=== PATIENT | female | born 1960 | race Caucasian/White ===

== ENCOUNTER → 2020-10-09 08:51 | Outpatient (CLI) | payer OTHER, SELFPAY ==
--- NOTE | ~2020-10-09 | XR_ITS ---
XR shoulder LT min 2V 10/09/2020 09:14 INDICATION: Left shoulder pain PROCEDURE: 4 views left shoulder COMPARISON: No prior studies for comparison. FINDINGS: Fracture, dislocation or subluxation is not identified. The soft tissues appear within norm al limits. No foreign bodies are identified. IMPRESSION: 1: NO ACUTE BONE OR JOINT ABNORMALITY IDENTIFIED. Reviewed, dictated and finalized at location A. R DEALER
== END ==
PROVIDERS: Visit Provider Physician Assistant
DX: M79.602 Pain in left arm (principal)
CPT/HCPCS: 73030

== ENCOUNTER → 2021-04-23 17:49 | Outpatient (CLI) | payer OTHER, SELFPAY ==
--- NOTE | ~2021-04-23 | DEXA_ITS ---
Bone Density Report Name: Mony Harrington Age: 60 Sex: Female Ethnicity: White Date of : 1960 Indication: postmenopausal; screening for osteoporosis; hysterectomy; Referring Provider: Connor, Annalisa Vasquez Study: Bone densitometry was performed. Exam Date: April 23, 2021 Accession number: [id number] Bone Density: Region BMD T-score Z-score Classification AP Spine (L1-L4) 1.071 0.2 1.8 Normal Femoral Neck (Left) 0.796 -0.5 0.9 Normal Total Hip (Left) 0.943 0.0 1.1 Normal Femoral Neck (Right) 0.784 -0.6 0.8 Normal Total Hip (Right) 0.972 0.2 1.4 Normal Total Hip Mean 0.958 0.1 1.3 Normal World Health Organization criteria for BMD impression classify patients as: Normal (T-score at or above -1.0), Osteopenia (T-score between -1.0 and -2.5), or Osteoporosis (T-score at or below -2.5). 10-year Fracture Risk: FRAX not reported because: All T-scores for Spine Total, Hip Total, Femoral Neck at or above -1.0 Previous Exams: Region Exam Age BMD T-score BMD Change BMD Change Date g/cm2 vs Baseline vs Previous AP Spine(L1-L4) 04/23/2021 60 1.071 0.2 -0.095* -0.036* 02/03/2017 56 1.107 0.5 -0.059* -0.009 08/24/2013 53 1.116 0.6 -0.050* -0.050* 09/29/2008 48 1.166 1.1 Total Hip(Left) 04/23/2021 60 0.943 0.0 -0.094* 0.001 02/03/2017 56 0.943 0.0 -0.095* -0.043* 08/24/2013 53 0.986 0.4 -0.052* -0.052* 09/29/2008 48 1.037 0.8 Total Hip(Right) 04/23/2021 60 0.972 0.2 -0.043* -0.037* 02/03/2017 56 1.009 0.5 -0.006 0.019 08/24/2013 53 0.990 0.4 -0.025 -0.025 09/29/2008 48 1.015 0.6 *Denotes significance at 95% confidence level, LSC for AP Spine = 0.022 g/cm2, LSC for Total Hip = 0.027 g/cm2 Clinical Information Provided by Patient: Has used the following medications: Vitamin D, Calcium Has the following medical conditions: Hysterectomy Patient maximum height was 68 Menopause Age: 27 Drinks caffeinated beverages Onset of menses at age 9 Number of children 3 Impression: The patient has normal bone mass. The BMD for the AP Spine(L1-L4) decreased, changing by -0.036 since the last DXA exam. The BMD for the Total Hip(Right) decreased, changing by -0.037 since the last DXA exam. Discussion: BONE DENSITY IS ABOVE THE MINIMUM DESIRABLE L
--- NOTE | ~2021-04-23 | MM_ITS ---
EXAMINATION: MM screening [facility] BI w chris HISTORY: Screening mammogram TECHNIQUE: Craniocaudal and mediolateral oblique 3-D tomosynthesis images were obtained and synthetic 2-D images were generated. CAD analysis was submitted and interpreted. COMPARISON: 09/23/2019, 03/14/2018 BREAST PARENCHYMAL COMPOSITION: The breasts are heterogeneously dense, which may obscure small masses . FINDINGS: There is no evidence of suspicious mass, calcification, or architectural distortion to sugg est malignancy in either breast. There has been no suspicious interval change. IMPRESSION: 1. No mammographic evidence of malignancy. 2. Recommend routine screening mammography in one year. BI-RADS Category 1: Negative Reviewed, dictated and finalized at location A.
== END ==
PROVIDERS: PCP Family Medicine; Visit Provider Nurse Practitioner Obstetrics & Gynecology
DX: Z12.31 Encounter for screening mammogram for malignant neoplasm of breast (principal); Z78.0 Asymptomatic menopausal state
CPT/HCPCS: 77063; 77067; 77080

== ENCOUNTER → 2022-04-20 10:46 | Outpatient (CLI) | payer OTHER, SELFPAY ==
--- NOTE | ~2022-04-20 | CT_ITS ---
EXAMINATION: CT UE RT wo con DATE: 04/20/2022 11:00 INDICATION: 04/21/2022 TECHNIQUE: High resolution computed tomography (CT) of the right forearm was performed without intrav enous contrast. Additional sagittal and coronal reconstructions were performed. Automated exposure co ntrol and iterative reconstruction technique were employed. The dose-length product was 138.33 mGy-cm . COMPARISON: None FINDINGS: There is a large lenticular homogeneous fat attenuation lipoma which extends along what appears to be a fascial plane deep to the musculature of the extensor compartment at the radial side of the proxim al to mid forearm. The mass measures 9.2 x 5.8 x 2.8 cm in maximal orthogonal dimensions. No evident solid nodular soft tissue component. The mass exerts some mass effect upon the radial artery which ex tends along the volar/ulnar margin of the mass. The surrounding musculature is unremarkable. Bone ali gnment is normal. No fracture, cortical erosions or periosteal reaction. Joint spaces are relatively preserved. No elbow joint effusion. IMPRESSION: 1. 9.2 x 5.8 x 2.8 cm lipoma extending along the fascial plane deep to the extensor compartment at th e radial aspect of the proximal to mid forearm. Reviewed, dictated and finalized at location A. IMPRESSION: 1. 9.2 x 5.8 x 2.8 cm lipoma extending along the fascial plane deep to the exte nsor compartment at the radial aspect of the proximal to mid forearm.
== END ==
PROVIDERS: PCP Family Medicine; Visit Provider Physician Assistant Medical
DX: D17.21 Benign lipomatous neoplasm of skin and subcutaneous tissue of right arm (principal)
CPT/HCPCS: 73200

== ENCOUNTER → 2022-05-02 10:49 | Outpatient (CLI) | payer OTHER, SELFPAY ==
--- NOTE | ~2022-05-02 | MR_ITS ---
EXAMINATION: MR foot RT wo/w con DATE: 05/02/2022 11:37 INDICATION: Soft tissue mass at the right foot TECHNIQUE: Magnetic resonance imaging (MRI) of the right fore/mid foot was performed without and with 17 mL Multihance intravenous contrast. Sequences included sagittal T1-weighted FSE, sagittal fluid s ensitive FSE STIR, coronal PD-weighted FS FSE, coronal T1-weighted FSE, axial T2-weighted FS FSE, and axial T1-weighted FSE. COMPARISON: None FINDINGS: There is a lobular macroscopic fat attenuation lipoma at the plantar aspect of the forefoot. The dist al portion of the lipoma extends between the fourth and fifth metatarsophalangeal joints and with the larger region of the mass extending proximally within the fat pad plantar to the diaphysis of the th ird and fourth metatarsals. The mass measures 5.1 cm and up to 2.3 x 1.3 cm in maximal orthogonal dim ensions. At the level of the metatarsophalangeal joints the mass measures 5 mm the medial to lateral width. Bone alignment is normal. Mild edema and enhancement at both moieties of a bipartite first metatarsal tibial sesamoid suggestive of sesamoiditis. Marrow signal is otherwise normal with no fracture or pa thologic marrow replacing process. Joint spaces are normal. Physiologic amount fluid in the joint [place]. Intrinsic musculature of the foot appears normal. The visualized portions of the flexor and exte nsor tendons are normal. Lisfranc ligament complex as well as the collateral ligament complex at the metatarsophalangeal and interphalangeal joints are normal. No abnormally enhancing lesions identified . IMPRESSION: 1. 5.1 x 2.3 x 1.3 cm lipoma located between the fourth and fifth metatarsophalangeal joints and plan tar to the central aspect of the forefoot. 2. Mild edema and enhancement within a bipartite tibial sesamoid suggestive of sesamoiditis. Reviewed, dictated and finalized at location B. IMPRESSION: 1. 5.1 x 2.3 x 1.3 cm lipoma located between the fourth and fifth metatarsophal angeal joints and plantar to the central aspect of the forefoot. 2. Mild edema and enhancement within a bipartite tibial sesamoid suggestive of sesamoiditis.
[2022-05-02 11:09] LABS: Estimated Glomerular Filt Rate > 60
== END ==
PROVIDERS: PCP Family Medicine; Visit Provider Podiatrist Foot & Ankle Surgery
DX: M67.479 Ganglion, unspecified ankle and foot (principal); D17.79 Benign lipomatous neoplasm of other sites; M79.89 Other specified soft tissue disorders
CPT/HCPCS: 73720; A9577

== ENCOUNTER 2022-06-01 00:36 | Day surgery (SDC) | payer OTHER, SELFPAY ==
[2022-05-24 15:56] VITALS: BMI 30.4
--- NOTE | 2022-05-24 16:19 | PC.NURSE ---
Report to the Outpatient Waiting Room, entrance under the green pavilion located off [facility], at 1000 on 06-01-2022. OR Time: 1200. - You and your visitor will be asked a series of questions to screen for COVID 19 for your protection. - Only one visitor is allowed at this time. - The patient visitor is requested to leave or wait in car when not with patient. - A mask is required within the hospital. Patients may have clear liquids (water, carbonated beverages, clear teas, apple juice) until 3 hours prior to surgery with a maximum of 20 ounces. - No food from midnight until time of surgery - Infants may have breast milk until 4 hours before surgery, formula 6 hours prior to surgery. - Children will be allowed to drink immediately following surgery. If applicable, please bring a bottle or sippy cup to assist with drinking. Juice, water, soda, and popsicles are readily available. For infants on formula, please bring formula the day of surgery. Pacifiers are allowed. Take the following medications with a SIP of water the morning of surgery: None Medications to discontinue per physician: vitamins and supplements (Okay to continue aspirin per Juan Luis) Date to take last dose: 05-29-2022 Please no make-up, nail french, hairspray, perfume, deodorant, or body powder the day of surgery. No jewelry (including any body piercings) or valuables the day of surgery, leave them at home. Please take a shower or bath the night before, or the morning of, surgery with an antibacterial soap. Wear comfortable, loose fitting clothing. Children are encouraged to wear pajamas. - Jewelry must be removed prior to entering the operating room. Rings and piercings that are not removed may be cut off. - The hospital will not accept responsibility for valuables. - Please leave all valuables, including medications, at home the day of surgery. If you are going home after surgery, a licensed goat driver must drive you home. - NO public transportation without another adult. - We recommend that an adult stay with you for 24 hours following discharge. - We also recommend that you do not drive, make important decision, drink alcoholic beverages, or take any drugs that were not prescribed by your health care provider for at least 24 hours after your discharge time. For Pediatric surgeries, we recommend two adults accompany the child home (only one inside the building at this time). Follow any additional instructions given to you from your surgeon. If you or anyone in your household have experienced Covid symptoms in the past week, please notify your surgeon or the nurse liaison at the phone number below for possible testing. Telephone instructions given to Evelia Harrington and asked if any additional questions and then verbalized understanding. Patient advised to call surgeon office or pre surgery nurse liaison [phone] if any additional questions.
--- NOTE | 2022-05-31 15:34 | WPDANESEPPF ---
Anes - Initial Pre Proc Eval Procedure: Operation Date: 06/01/22 12:00 Proposed Procedures p Excision Intramuscular Right Forearm Mass - Freddie Mcknight DO Date/Time: 05/31/22 15:34 Surgeon: Freddie Mcknight DO Pre Op Diagnosis: Rt Forearm 9 cm Intramuscular Mass Patient Data Age: 62 Gender: F Height: 1.73 m Weight: 90.72 kg Allergies Allergy/AdvReac Type Severity Reaction Status Date / Time No Known Allergies Allergy Verified 05/24/22 15:55 Home Medications Medication Instructions Recorded Confirmed Type simvastatin 40 mg tablet 40 mg PO DAILY #90 tabs 02/04/22 05/24/22 Rx aspirin 81 mg chewable tablet 81 mg PO DAILY 05/24/22 05/24/22 History multivit with minerals-iron 18 1 tablet PO DAILY 05/24/22 05/24/22 History mg-folic ac 400 mcg-vit K 25 mcg tablet (Adults Multivitamin) omega-3 fatty acids 1,000 mg PO DAILY 05/24/22 05/24/22 History Patient hx anesthesia problems: none Family hx anesthesia problems: none Results Review: All pre-operative results and documents have been reviewed as part of the pre-operative evaluation. [facility] Past Medical History Medical History (Updated 06/01/22 @ 10:40 by René Pate DO) Elevated bilirubin Mass of forearm Obesity (BMI 30-39.9) Overweight (BMI 25.0-29.9) Prediabetes Pure hypercholesterolemia Wellness examination Women's annual routine gynecological examination Surgical History Surgical History History of cholecystectomy (~1979) History of hysterectomy (~1987) Family History Family History Sibling Diabetes mellitus Father Hypertension Family history of cardiovascular disease Family history of lung cancer Unknown Kidney disease associated with lupus Social History Social History Smoking status: Never smoker Second hand tobacco smoke exposure: No Alcohol intake: current Drinks per week: 3 Alcohol use details: beer and wine Substance use: never Substance use type: does not use Living arrangements: with family Gender identity (if verbalized by the patient): Female Sexual Orientation (if Verbalized by the Patient): Straight or Heterosexual Spiritual care concerns: No Agree to blood products: Yes Anes - Eval Final PreProcedure Day of Procedure 05/31/22 15:34 Patient weight: obese Heart: regular rate and rhythm Lungs: clear to auscultation Airway: Mallampati scale class II Neurological: alert and oriented Last oral intake: >/= 8 hours ASA classification: II Emergent: no Anesthetic plan: proceed Anesthesia type and monitoring: general GIVS and standard monitoring Results Review: All pre-operative results and documents have been reviewed as part of the pre-operative evaluation. Informed Consent: The patient's anesthetic plan and its attendant risks and benefits were discussed with the patient/family/POA. Questions were solicited and answers provided to the satisfaction of the patient/family/POA.
[2022-06-01 10:40] VITALS: BP 161/85; PULSE 81; RESP 14; TEMP 36.8; O2SAT 100
[2022-06-01] MEDS: LACTATED RINGERS 1,000 ML 30 ML IV CONT (10:45)
--- NOTE | 2022-06-01 12:18 | WPDHPUPDATE1 ---
History and Physical Update Update Date/Time: 06/01/22 12:18 History and Physical has been reviewed, including an updated exam of the patient. There are NO changes in the patient's condition. Risks, benefits, and alternatives have been discussed and questions answered. Patient agrees to proceed with procedure.
--- NOTE | 2022-06-01 12:18 | PM.IMHP ---
H&P: HPI History of Present Illness Date/Time: 06/01/22 12:18 Chief Complaint: Right forearm mass Narrative: This is a 62-year-old woman who presents for excision of right forearm mass. She reports no changes since last seen in the office. Review of Systems Review of Systems: All systems reviewed & are unremarkable except as noted in HPI and below Constitutional: Constitutional: Denies chills, Denies fever(s), Denies headache(s) and Denies weight loss Eyes: Eyes: Denies change in vision ENT: Denies dizziness, Denies headache(s), Denies neck mass and Denies throat swelling Cardiovascular: Cardiovascular: Denies chest pain, Denies lightheadedness and Denies dyspnea Respiratory: Respiratory: Denies cough, Denies dyspnea and Denies wheezing Gastrointestinal: Gastrointestinal: Denies abdominal pain, Denies change in bowel habits, Denies nausea and Denies vomiting Genitourinary: Genitourinary: Denies hematuria and Denies dysuria Musculoskeletal: Musculoskeletal: Reports as per HPI Integumentary/Breasts: Skin/Breast: Reports as per HPI Neurologic: Denies dizziness and Denies headache(s) Allergic/Immunologic: Allergic/Immunologic: Denies throat swelling and Denies wheezing [facility] Past Medical History Medical History (Updated 06/01/22 @ 10:40 by René Pate DO) Elevated bilirubin Mass of forearm Obesity (BMI 30-39.9) Overweight (BMI 25.0-29.9) Prediabetes Pure hypercholesterolemia Wellness examination Women's annual routine gynecological examination Surgical History Surgical History History of cholecystectomy (~1979) History of hysterectomy (~1987) Family History Family History Sibling Diabetes mellitus Father Hypertension Family history of cardiovascular disease Family history of lung cancer Unknown Kidney disease associated with lupus Social History Social History Smoking status: Never smoker Second hand tobacco smoke exposure: No Alcohol intake: current Drinks per week: 3 Alcohol use details: beer and wine Substance use: never Substance use type: does not use Living arrangements: with family Gender identity (if verbalized by the patient): Female Sexual Orientation (if Verbalized by the Patient): Straight or Heterosexual Spiritual care concerns: No Agree to blood products: Yes Meds Home Medications and Allergies Home Medications Medication Instructions Recorded Confirmed Type simvastatin 40 mg tablet 40 mg PO DAILY #90 tabs 02/04/22 05/24/22 Rx aspirin 81 mg chewable tablet 81 mg PO DAILY 05/24/22 05/24/22 History multivit with minerals-iron 18 1 tablet PO DAILY 05/24/22 05/24/22 History mg-folic ac 400 mcg-vit K 25 mcg tablet (Adults Multivitamin) omega-3 fatty acids 1,000 mg PO DAILY 05/24/22 05/24/22 History Allergies Allergy/AdvReac Type Severity Reaction Status Date / Time No Known Allergies Allergy Verified 06/01/22 10:46 Vital Signs Vital Signs - 24 hr 06/01/22 10:40 Temperature 36.8 C Pulse Rate 81 Respiratory Rate 14 Blood Pressure 161/85 H Pulse Oximetry 100 Oxygen Delivery Room Air Exam Const: General: no acute distress and alert Orientation/consciousness: patient oriented x3 HENMT: Head: normocephalic and atraumatic Ears: hearing grossly normal bilaterally General nose exam: Normal nares present Mouth: Yes Normal oral and palatal mucosa present Eyes: Periorbital: periorbital findings normal Sclera: sclerae normal EOM: EOMs intact bilaterally Neck: Neck: normal visual inspection, no lymphadenopathy and trachea midline Chest: Chest palpation & inspection: normal inspection of the chest Resp: Effort & Inspection: normal respiratory effort Auscultation: clear to auscultation bilaterally Cardio: Jugular venous distension: no JVD Rate: regular rate
[2022-06-01] MEDS: ceFAZolin 2 GM/D5W 50 ML 2 GM/50 ML BAG IVPB (12:37)
[2022-06-01] MEDS: LIDO 1%/EPINEPHRINE 1:100,000 50 ML VIAL INFILTRATE (13:07)
--- NOTE | 2022-06-01 13:36 | W.PM.PROC2 ---
Procedure Note - Detailed Date of Procedure 06/01/22 Pre-op Diagnosis Rt Forearm 9 cm Intramuscular Mass Post-op Diagnosis Same Procedure Performed Excision of 9 cm intramuscular right forearm mass Surgeon Freddie Mcknight, DO Anesthesia MAC and Local (1% lidocaine with epinephrine) Indications This is a 62-year-old woman who presented with an enlarging mass in her right forearm. She 1st noticed this several years ago. A CT of her forearm was performed and this showed evidence of a lipoma in the intramuscular compartment. Discussions were made with the patient about treatment options and decision was made to proceed with excision of the 9 cm intramuscular right forearm mass. Findings The intramuscular right 4 mass was completely excised. The mass appeared to be a lipoma. It was within the extensor muscle compartment. The mass was carefully excised completely and sent to the lab for pathology. Description of Procedure Procedure as well as risks, benefits, and alternatives were discussed with the patient. Consent was obtained and placed in chart prior to procedure. Patient was brought back to surgical suite. She was placed supine on operating table. Time-out was done to confirm patient and procedure. IV sedation was then administered by the anesthesia department. Her right forearm was prepped and draped in sterile fashion using chlorhexidine prep. 1% lidocaine with epinephrine was infiltrated locally around the mass. A 9 cm longitudinal incision was made over the radial side of her right forearm using a 15 blade scalpel. Electrocautery was used for hemostasis and for dissection through the subcutaneous tissue. The fascia overlying the forearm muscles was incised using electrocautery and then the muscle was carefully split longitudinally to identify the mass. The mass was then carefully delivered through the muscle tissue with blunt dissection and electrocautery. Care was taken to avoid any vascular or nerve injuries as it was dissected. The mass was completely excised and sent to the lab for pathology. The wound bed was then inspected. Hemostasis appeared adequate and no other abnormalities were noted. The fascia was then closed over the muscle using a 2-0 Vicryl running absorbable suture. Skin was then approximated using 4 Monocryl running subcuticular suture. Exofin glue was then applied on top. The patient was then awakened from anesthesia and transferred to recovery. Estimated Blood Loss 5 Pathology Yes (9 cm intramuscular right forearm mass) Complications No immediate complications Condition Stable Disposition Same day [facility] Billing Surgery - Charge Forward: Surgery Billing
[2022-06-01 13:40] VITALS: BP 138/50; PULSE 93; RESP 14; O2SAT 94
[2022-06-01 14:10] VITALS: BP 117/71; PULSE 88
[2022-06-01] MEDS: oxyCODONE HCL (*CRX) 5 MG TAB IR PO (14:15)
[2022-06-01 14:30] VITALS: BP 92/57; PULSE 84
== END 2022-06-01 14:45 | disposition home or self-care (01) ==
PROVIDERS: PCP Family Medicine; Visit Provider Surgery
PROC: (CPT 25073; principal; 2022-06-01 12:00)
DX: D17.21 Benign lipomatous neoplasm of skin and subcutaneous tissue of right arm (principal); E78.00 Pure hypercholesterolemia, unspecified; Z79.82 Long term (current) use of aspirin; E66.9 Obesity, unspecified; Z68.31 Body mass index [BMI] 31.0-31.9, adult
CPT/HCPCS: 25073; 88304; A9270; J0690; J2250; J2704; J3010; J7120

== ENCOUNTER → 2022-11-09 10:39 | Outpatient (CLI) | payer OTHER, SELFPAY ==
--- NOTE | ~2022-11-09 | MM_ITS ---
EXAMINATION: MM screening [facility] BI w chris HISTORY: Screening mammogram TECHNIQUE: Craniocaudal and mediolateral oblique 3-D tomosynthesis images were obtained and synthetic 2-D images were generated. CAD analysis was submitted and interpreted. COMPARISON: 04/23/2021, 09/23/2019, 03/14/2018 BREAST PARENCHYMAL COMPOSITION: The breasts are heterogeneously dense, which may obscure small masses . FINDINGS: No suspicious mass, calcification, or architectural distortion are identified in either maryam ast to suggest malignancy. There has been no suspicious interval change. IMPRESSION: 1. No mammographic evidence of malignancy. 2. Recommend routine screening mammography in one year. BI-RADS Category 1: Negative Reviewed, dictated and finalized at location A. [employer]
== END ==
PROVIDERS: PCP Family Medicine; Visit Provider Family Medicine
DX: Z12.31 Encounter for screening mammogram for malignant neoplasm of breast (principal)
CPT/HCPCS: 77063; 77067

== ENCOUNTER 2022-11-11 00:45 | Day surgery (SDC) | payer OTHER, SELFPAY ==
[2022-11-02 09:52] VITALS: BMI 30.4
--- NOTE | 2022-11-02 09:56 | PC.NURSE ---
Report to the Outpatient Waiting Room, entrance under the green pavilion located off [facility], at time 0600 on date 11/11/22. Planned Procedure Time: 0730. Time changes happen often and if your time is changed the preop area will call you the afternoon before. - You and your visitor will be asked to self-screen and do not enter if you have any COVID symptoms. - Only one visitor is requested with a max of two and NO children visitors are allowed at this time. - The patient visitor may be requested to leave or wait in car when not with patient due to distancing restrictions. - A mask is REQUIRED within the hospital. Patients may have clear liquids (water, carbonated beverages, clear teas, apple juice) until 3 hours prior to surgery with a maximum of 20 ounces. - No food from midnight until time of surgery Take the following medications with a SIP of water the morning of surgery: NONE Medications to discontinue per physician: VITAMINS/SUPPLEMENTS Date to take last dose: 11/07/22 PT STATES SHE STOPPED ASPIRIN 2 WEEKS PRIOR TO SURGERY PER DR. RICHARDSON Please no make-up, nail wolof, hairspray, perfume, deodorant, or body powder the day of surgery. No jewelry (including any body piercings) or valuables the day of surgery, leave them at home. Please take a shower or bath the night before, or the morning of, surgery with an antibacterial soap. Wear comfortable, loose fitting clothing. - Jewelry must be removed prior to entering the operating room. Rings and piercings that are not removed may be cut off. - The hospital will not accept responsibility for valuables. - Please leave all valuables, including medications, at home the day of surgery. If you are going home after surgery, a licensed wedding transportation driver must drive you home. - NO public transportation without another adult if you receive anesthesia. - We recommend that an adult stay with you for 24 hours following discharge. - We also recommend that you do not drive, make important decision, drink alcoholic beverages, or take any drugs that were not prescribed by your health care provider for at least 24 hours after your discharge time. Follow any additional instructions given to you from your surgeon. If you or anyone in your household have experienced Covid symptoms in the past week, please notify your surgeon or the nurse liaison at the phone number below for possible testing. Telephone instructions given to GERALD FAN and asked if any additional questions and then verbalized understanding. Patient advised to call surgeon office or pre surgery nurse liaison [phone] if any additional questions.
[2022-11-11 06:10] VITALS: BP 152/74; PULSE 72; RESP 16; TEMP 36.1; O2SAT 98
[2022-11-11] MEDS: LACTATED RINGERS 1,000 ML 30 ML IV CONT ×2 (06:21→07:54)
--- NOTE | 2022-11-11 06:24 | WPDANESEPPF ---
Anes - Initial Pre Proc Eval Procedure: Operation Date: 11/11/22 07:30 Proposed Procedures p Excision of Soft Tissue Tumor Right Foot - Tyler Anderson JR, MD Date/Time: 11/11/22 06:24 Surgeon: Tyler Anderson JR, MD Pre Op Diagnosis: Soft Tissue Mass Right Foot Patient Data Age: 62 Gender: F Height: 1.73 m Weight: 92.4 kg Last Vital Signs Temp 36.1 C L 11/11/22 06:10 Pulse 72 11/11/22 06:10 Resp 16 11/11/22 06:10 BP 152/74 H 11/11/22 06:10 Pulse Ox 98 11/11/22 06:10 O2 Del Method Room Air 11/11/22 06:10 Allergies Allergy/AdvReac Type Severity Reaction Status Date / Time No Known Allergies Allergy Verified 11/11/22 06:04 Home Medications Medication Instructions Recorded Confirmed Type simvastatin 40 mg tablet 40 mg PO DAILY #90 tabs 02/04/22 11/02/22 Rx aspirin 81 mg chewable tablet 81 mg PO DAILY 05/24/22 11/02/22 History multivit with minerals-iron 18 1 tablet PO DAILY 05/24/22 11/02/22 History mg-folic ac 400 mcg-vit K 25 mcg tablet (Adults Multivitamin) omega-3 fatty acids 1,000 mg PO DAILY 05/24/22 11/02/22 History Patient hx anesthesia problems: none Family hx anesthesia problems: none Results Review: All pre-operative results and documents have been reviewed as part of the pre-operative evaluation. [facility] Past Medical History Medical History Elevated bilirubin Mass of forearm Obesity (BMI 30-39.9) Overweight (BMI 25.0-29.9) Prediabetes Pure hypercholesterolemia Wellness examination Women's annual routine gynecological examination Surgical History Surgical History H/O excision of mass excision of 9cm intramuscular forearm mass on 06/01/22 History of cholecystectomy (~1979) History of hysterectomy (~1987) Family History Family History Sibling Diabetes mellitus Father Hypertension Family history of cardiovascular disease Family history of lung cancer Unknown Kidney disease associated with lupus Social History Social History Smoking status: Never smoker Second hand tobacco smoke exposure: No Alcohol intake: current Drinks per week: 3 Alcohol use details: beer and wine Substance use: never Substance use type: does not use Living arrangements: with family Gender identity (if verbalized by the patient): Female Sexual Orientation (if Verbalized by the Patient): Straight or Heterosexual Spiritual care concerns: No Agree to blood products: Yes Anes - Eval Final PreProcedure Day of Procedure 11/11/22 06:24 Patient weight: obese Heart: regular rate and rhythm Lungs: clear to auscultation Airway: Mallampati scale class II Neurological: alert and oriented Last oral intake: >/= 8 hours ASA classification: II Emergent: no Anesthetic plan: proceed Anesthesia type and monitoring: general GIVS and standard monitoring Results Review: All pre-operative results and documents have been reviewed as part of the pre-operative evaluation. Informed Consent: The patient's anesthetic plan and its attendant risks and benefits were discussed with the patient/family/POA. Questions were solicited and answers provided to the satisfaction of the patient/family/POA.
--- NOTE | 2022-11-11 07:12 | WPDHPUPDATE1 ---
History and Physical Update Update Date/Time: 11/11/22 07:12 History and Physical has been reviewed, including an updated exam of the patient. There are NO changes in the patient's condition. Risks, benefits, and alternatives have been discussed and questions answered. Patient agrees to proceed with procedure.
[2022-11-11] MEDS: ceFAZolin 2 GM/D5W 50 ML 2 GM/50 ML BAG IVPB (07:19)
[2022-11-11] MEDS: BUPIVACAINE HCL 0.5% PF 30 ML VIAL 10 ML INFILTRATE (07:30)
[2022-11-11] MEDS: LIDOCAINE HCL 2% PF INJ 5 ML VIAL 10 ML INFILTRATE (07:30)
[2022-11-11 07:54] VITALS: BP 122/54; PULSE 66; RESP 14; O2SAT 95
--- NOTE | 2022-11-11 08:09 | W.PM.PROC2 ---
Procedure Note - Detailed Date of Procedure 11/11/22 Pre-op Diagnosis Soft Tissue Mass Right Foot Post-op Diagnosis Same Procedure Performed Excision of soft tissue mass right foot Surgeon Tyler Anderson JR, DPM Anesthesia MAC and Local Indications Painful mass to the right forefoot Findings oval shaped encapsulated lipomatous mass measuring 4cm long by 1.5cm wide Description of Procedure Under mild sedation, the patient was brought in to the operating room, placed on the operating table in the supine position. A pneumatic ankle tourniquet was placed about the patient's ankle. Following IV sedation anesthesia, local anesthesia was obtained about the affected lower extremity utilizing 20 mL of a one to mix of 2% Lidocaine plain and 0.5% Marcaine plain to the tibial nerve. The foot was then scrubbed, prepped, and draped in the usual aseptic manner. An Esmarch bandage was then used to exsanguinate the patient's foot and the pneumatic ankle tourniquet was then inflated. Next, an incision was made along the plantar aspect of the lateral right forefoot, 5cm in length starting proximal to the metatarsal phalangeal joint region extending proximally. All bleeders were cauterized as necessary. Next the dissection was continued down to the subcutaneous fat layer, where a 4cm long by 1.5cm encapsulated lipomatous mass was excised and sent for gross and histopathology. No remaining tissue mas noted. The mass was not tethered along any neurovascular tissue. The wound site was flushed with sterile saline. The deep subcutaneous tissue was reapproximated with 4.0 Vicryl and the skin was reapproximated with 3.0 Prolene in Vertical mattress and simple interrupted suture fashion technique. Upon completion of the procedure, the plantar incision was dressed with adaptic, 4x4 gauze, kerlix and coban. The pneumatic ankle tourniquet was then deflated and a prompt hyperemic response was noted to all digits of the affected foot. A CAM Walker boot was then applied. The patient did very well with the procedure and the anesthesia. The patient was transferred to the recovery room with vital signs stable and vascular status intact to all toes of the affected foot. Following a period of postoperative monitoring, the patient will be discharged home on the following written and oral postoperative instructions: 1. The patient should keep the dressing clean, dry, and intact. Use a cast protector bag with showers. 2. The patient will be strictly protected weight bearing with CAM walker boot. 3. Patient should ice and elevate the affected foot when at rest. 4. The patient is to contact Dr. Anderson for all postop care and if any problems arise. 5. Prescriptions were written for Percocet 5/325 dispensed 40 to be taken 1 p.o. q.4-6 hours as needed for severe pain. Estimated Blood Loss 1 Pathology Yes Complications No immediate complications Condition Stable Disposition Same day
[2022-11-11 08:25] VITALS: BP 113/63; PULSE 67; RESP 20
[2022-11-11 08:55] VITALS: BP 133/69; PULSE 58; RESP 20
== END 2022-11-11 09:01 | disposition home or self-care (01) ==
PROVIDERS: PCP Family Medicine; Visit Provider Podiatrist Foot & Ankle Surgery
PROC: (CPT 28039; principal; 2022-11-11 07:30)
DX: D17.23 Benign lipomatous neoplasm of skin and subcutaneous tissue of right leg (principal); E78.00 Pure hypercholesterolemia, unspecified; Z79.82 Long term (current) use of aspirin; E66.9 Obesity, unspecified; Z68.31 Body mass index [BMI] 31.0-31.9, adult
CPT/HCPCS: 28039; 88304; J0690; J2704; J3010; J7120

== ENCOUNTER 2024-06-10 15:44 | Outpatient (CLI) | payer MEDICARE, OTHER, SELFPAY ==
--- NOTE | ~2024-06-10 | MM_ITS ---
EXAMINATION: MM screening [facility] BI w chris HISTORY: Screening TECHNIQUE: Craniocaudal and mediolateral oblique 3-D tomosynthesis images were obtained and synthetic 2-D images were generated. CAD analysis was submitted and interpreted. COMPARISON: Comparison to multiple prior studies sequentially, with oldest reviewed study dated 02/03. BREAST PARENCHYMAL COMPOSITION: Not dense: There are scattered areas of fibroglandular density. FINDINGS: There is no evidence of suspicious mass, calcification, or architectural distortion to sugg est malignancy in either breast. There has been no suspicious interval change. IMPRESSION: 1. No mammographic evidence of malignancy. 2. Recommend routine screening mammography in one year. BI-RADS Category 1: Negative Reviewed, dictated and finalized at location B.
== END 2024-06-10 15:45 ==
LOC: MICIMG 15:45
PROVIDERS: PCP Family Medicine; Visit Provider Family Medicine
DX: Z12.31 Encounter for screening mammogram for malignant neoplasm of breast (principal)
CPT/HCPCS: 77063; 77067

== ENCOUNTER 2024-09-04 12:32 | Outpatient (CLI) | payer MEDICARE, OTHER, SELFPAY ==
--- NOTE | ~2024-09-04 | DEXA_ITS ---
Bone Density Report Name: KASEY FAN Age: 64 Sex: Female Ethnicity: White Date of : 1960 Indication: postmenopausal; screening for osteoporosis; hysterectomy; Referring Provider: PAIGE HAMMOND Study: Bone densitometry was performed. Exam Date: September 04, 2024 Accession number: [id number] Bone Density: Region BMD T-score Z-score Classification AP Spine(L1-L4) 1.065 0.2 2.0 Normal Femoral Neck (Left) 0.793 -0.5 1.1 Normal Total Hip (Left) 0.982 0.3 1.6 Normal Femoral Neck (Right) 0.834 -0.1 1.4 Normal Total Hip (Right) 0.967 0.2 1.5 Normal Total Hip Mean 0.974 0.3 1.6 Normal World Health Organization criteria for BMD impression classify patients as: Normal (T-score at or above -1.0), Osteopenia (T-score between -1.0 and -2.5), or Osteoporosis (T-score at or below -2.5). 10-year Fracture Risk: FRAX not reported because: All T-scores for Spine Total, Hip Total, Femoral Neck at or above -1.0 Clinical Information Provided by Patient: Has used the following medications: Vitamin D, Calcium Has the following medical conditions: Hysterectomy Patient maximum height was 68 Menopause Age: 27 Drinks caffeinated beverages Onset of menses at age 9 Number of children 3 Impression: The patient has normal bone mass. Discussion: BONE DENSITY IS ABOVE THE MINIMUM DESIRABLE LEVEL AT ALL SKELETAL SITES TESTED. This patient?s bone mineral density is above the minimum desirable level (T-score -1.0 or better) at all sites measured. The patient should follow a healthful lifestyle (good nutrition with adequate calcium and vitamin D, and appropriate weight-bearing exercise). Follow-Up: Consider repeating this study in 5 years or sooner if there is some new clinical indication. Reported by: MARY on 09/04/2024 1:20:00 PM. Reviewed, dictated and finalized at location AShukri SANTIZO
== END 2024-09-04 12:33 | disposition home or self-care (01) ==
LOC: ANHIMG 12:33
PROVIDERS: PCP Family Medicine; Visit Provider Family Medicine
DX: Z78.0 Asymptomatic menopausal state (principal)
CPT/HCPCS: 77080

== ENCOUNTER 2025-06-12 12:37 | Outpatient (CLI) | payer MEDICARE, OTHER, SELFPAY ==
--- NOTE | ~2025-06-12 | MM_ITS ---
EXAMINATION: MM screening [facility] BI w chris HISTORY: Screening mammogram TECHNIQUE: Craniocaudal and mediolateral oblique 3-D tomosynthesis images were obtained and synthetic 2-D images were generated. CAD analysis was submitted and interpreted. COMPARISON: 06/10/2024, 11/09/2022, 04/23/2021 BREAST PARENCHYMAL COMPOSITION:Not Dense. There are scattered areas of fibroglandular density. FINDINGS: No suspicious mass, calcification, or architectural distortion are identified in either breast to suggest malignancy. There has been no suspicious interval change. IMPRESSION: No mammographic evidence of malignancy. Recommend routine screening mammography in one year. BI-RADS Category 1: Negative Reviewed, dictated and finalized at location .
== END 2025-06-12 12:38 | disposition home or self-care (01) ==
LOC: MICIMG 12:38
PROVIDERS: PCP Family Medicine; Visit Provider Family Medicine
DX: Z12.31 Encounter for screening mammogram for malignant neoplasm of breast (principal)
CPT/HCPCS: 77063; 77067